=== PATIENT | male | born 2000 | race Caucasian/White ===

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

== ENCOUNTER 2019-01-08 07:15 | Emergency (ER) | payer OTHER ==
[~2019-01-08] VITALS: Ht 180.3 cm; Wt 81.8 kg
[2019-01-08] MEDS ORDERED: IBUP-1022 PO (07:24)
[2019-01-08 08:12] LABS: BASO % 0.5 % (0.0-1.0); EOS # 0.1 10^3/uL (0.0-0.5); EOS % 2.4 % (0.0-3.0); HEMATOCRIT 41.5 % (42.0-52.0); HEMOGLOBIN 13.9 g/dl (13.5-17.5); LYMPH # 1.2 10^3/uL (1.5-5.0); LYMPH % 32.6 % (24.0-44.0); MEAN CORPUSCULAR HEMOGLOBIN 30.8 pg (27.0-33.0); MEAN CORPUSCULAR HGB CONC 33.5 g/dl (32.0-36.5); MEAN CORPUSCULAR VOLUME 91.8 fl (80.0-96.0); MONO # 0.4 10^3/uL (0.0-0.8); MONO % 11.3 % (0.0-5.0); NEUTROPHILS % 52.9 % (36.0-66.0); PLATELET COUNT, AUTOMATED 235 10^3/uL (150-450); RED BLOOD COUNT 4.52 10^6/uL (4.30-6.10); WHITE BLOOD COUNT 3.8 10^3/uL (4.0-10.0)
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
[2019-01-08 08:35] LABS: BLOOD UREA NITROGEN 13 MG/DL (7-18); CALCIUM LEVEL 8.9 MG/DL (8.5-10.1); CARBON DIOXIDE LEVEL 26 MEQ/L (21-32); CHLORIDE LEVEL 110 MEQ/L (98-107); CREATININE FOR GFR 0.81 MG/DL (0.70-1.30); GLUCOSE, FASTING 93 MG/DL (70-100); POTASSIUM SERUM 3.8 MEQ/L (3.5-5.1); SODIUM LEVEL 143 MEQ/L (136-145)
--- NOTE | 2019-01-08 08:42 | REP ---
Lumbar spine series: Five views. History: Midline low back pain. Findings: Five views of the lumbar spine show straightening of the normal lumbar lordosis. Lumbar vertebral body heights are preserved. Alignment is normal. Disc spaces are maintained. There is no evidence of spondylolysis or spondylolisthesis. No fracture or collapse is seen. Sacrum and SI joints are intact. Impression: Straightening, otherwise normal radiographs of the lumbar spine. Electronically Signed by Bi Paiz MD 01/08/2019 08:34 A
--- NOTE | 2019-01-08 09:52 | REP ---
Left lower extremity Duplex Doppler venous ultrasound: Real time compression and duplex Doppler interrogation of the left lower extremity deep venous system is performed. The left common femoral, superficial femoral and popliteal veins are fully compressible with transducer pressure and demonstrate normal spontaneous and phasic flow, without evidence of deep venous thrombosis. Impression: No evidence of deep venous thrombosis of the left lower extremity femoral popliteal venous system. Electronically Signed by Derek Gamboa MD 01/08/2019 09:44 A
[2019-01-08] MEDS ORDERED: NS 1,000 ML IV ONE (11:15)
[2019-01-08 13:48] VITALS: BP 110/57
[2019-01-08 14:05] LABS: CK-MB VALUE MASS 3.4 NG/ML (<3.6); CPK CREATINE PHOSPHOKINASE 584 U/L (39-308); MB/CK RELATIVE INDEX 0.58 (< OR =4); TROPONIN I < 0.02 NG/ML (< 0.10)
--- NOTE | 2019-01-10 07:58 | ECGEPIP ---
[facility] - ED Test Date: 2019-01-08 Pat Name: LUIS F ESTRADA Department: Room: - Gender: Male Extension Associate: CT : 2000 Requested By: NERISSA Osorio PA-C Order Number: [id number] Reading MD: Luz Villafuerte Measurements Intervals [place] Rate: 58 P: 47 [place]: 147 QRS: 83 QRSD: 96 T: 53 QT: 429 QTc: 421 Interpretive Statements SINUS BRADYCARDIA EARLY REPOLARIZATION No prior Electronically Signed on 01-10-2019 7:58:09 EDT by Luz Villafuerte
== END 2019-01-08 13:56 | disposition home or self-care (01) ==
LOC: M ED 07:15
DX: S09.90XA Unspecified injury of head, initial encounter (principal); Y99.1 Military activity; Y92.84 Military training ground as the place of occurrence of the external cause; R42 Dizziness and giddiness; R51 Headache; F17.218 Nicotine dependence, cigarettes, with other nicotine-induced disorders; Y93.A5 Activity, obstacle course

== ENCOUNTER 2020-08-16 08:05 | Day surgery (SDC) | payer OTHER ==
[~2020-08-16] VITALS: Ht 177.8 cm; Wt 93.9 kg
[~2020-08-16 08:05] MED LIST: IBUP-1022 PO; MELA5CAP2 PO; NS 1,000 ML IV ONE
[2020-08-16] MEDS ORDERED: LIDOCAINE 2% MDV 20ML VIAL As Ordered ONE (09:57)
[2020-08-16] MEDS ORDERED: propofoL 200 MG/20 ML VIAL As Ordered ONE ×2 (09:57→10:08)
--- NOTE | 2020-08-16 10:20 | ROOR ---
Patient Name: Aneesh Cadena Procedure Date: 08/16/2020 10:02 AM Date of : 2000 Age: 20 [facility] Note Status: Finalized Procedure: Total Colonoscopy to Cecum + ileoscopy Indications: Lower abdominal pain, Rectal bleeding, Change in bowel habits Providers: Larry Mulligan MD Referring MD: LUZ HARDING MD Requesting Provider: Medicines: Monitored Anesthesia Care Complications: No immediate complications. Procedure: Pre-Anesthesia Assessment: - The heart rate, respiratory rate, oxygen saturations, blood pressure, adequacy of pulmonary ventilation, and response to care were monitored throughout the procedure. The Colonoscope was introduced through the anus and advanced to the terminal ileum, with identification of the appendiceal orifice and IC valve. The colonoscopy was performed without difficulty. The patient tolerated the procedure well. The quality of the bowel preparation was excellent. Findings: The perianal and digital rectal examinations were normal. Non-bleeding internal hemorrhoids were found during retroflexion. The hemorrhoids were small and Grade I (internal hemorrhoids that do not prolapse). No other significant abnormalities were identified in a careful examination of the remainder of the colon. The terminal ileum appeared normal. The exam was otherwise without abnormality on direct and retroflexion views. Impression: - Non-bleeding internal hemorrhoids. - The examined portion of the ileum was normal. - The examination was otherwise normal on direct and retroflexion views. - No specimens collected. - The exam was otherwise normal to the cecum. Recommendation: - Patient has a contact number available for emergencies. The signs and symptoms of potential delayed complications were discussed with the patient. Return to normal activities tomorrow. Written discharge instructions were provided to the patient. - High fiber diet. - Discharge patient to home. - Continue present medications. - Repeat colonoscopy at age 49 for screening purposes. - Return to referring physician. - The findings and recommendations were discussed with the patient's family. Procedure Code(s): --- Professional --- 91249, Colonoscopy, flexible; diagnostic, including collection of specimen(s) by brushing or washing, when performed (separate procedure) Diagnosis Code(s): --- Professional --- K64.0, First degree hemorrhoids R10.30, Lower abdominal pain, unspecified K62.5, Hemorrhage of anus and rectum R19.4, Change in bowel habit CPT copyright 2019 [employer]. All rights reserved. The codes documented in this report are preliminary and upon blanket washer review may be revised to meet current compliance requirements. Larry Mulligan MD Larry Mulligan MD 08/16/2020 10:19:43 AM Electronically signed by Larry Mulligan MD Number of Addenda: 0 Note Initiated On: 08/16/2020 10:02 AM Estimated Blood Loss: Estimated blood loss: none.
[2020-08-16 10:39] VITALS: BP 124/81
== END 2020-08-16 10:41 | disposition home or self-care (01) ==
LOC: M OPP 08:05
PROVIDERS: ATTEND Internal Medicine Gastroenterology
DX: K64.0 First degree hemorrhoids (principal); K62.5 Hemorrhage of anus and rectum; R10.30 Lower abdominal pain, unspecified; R19.4 Change in bowel habit; K21.9 Gastro-esophageal reflux disease without esophagitis; F17.218 Nicotine dependence, cigarettes, with other nicotine-induced disorders; Z79.899 Other long term (current) drug therapy

== ENCOUNTER 2021-01-09 10:49 | Emergency (ER) | payer OTHER ==
[~2021-01-09] VITALS: Ht 177.8 cm; Wt 95.3 kg
[~2021-01-09 10:49] MED LIST changes: -NS 1,000 ML IV ONE
[2021-01-09 13:00] LABS: BASO % 0.6 % (0.0-1.0); EOS # 0.1 10^3/uL (0.0-0.5); EOS % 2.5 % (0.0-3.0); HEMATOCRIT 46.1 % (42.0-52.0); HEMOGLOBIN 15.2 g/dl (13.5-17.5); LYMPH # 1.6 10^3/uL (1.5-5.0); LYMPH % 30.9 % (24.0-44.0); MEAN CORPUSCULAR HEMOGLOBIN 30.8 pg (27.0-33.0); MEAN CORPUSCULAR VOLUME 93.3 fl (80.0-96.0); MONO # 0.6 10^3/uL (0.0-0.8); MONO % 12.1 % (2.0-8.0); NEUTROPHILS # 2.7 10^3/uL (1.5-8.5); NEUTROPHILS % 53.3 % (36.0-66.0); PLATELET COUNT, AUTOMATED 259 10^3/uL (150-450); RED BLOOD COUNT 4.94 10^6/uL (4.30-6.10); WHITE BLOOD COUNT 5.1 10^3/uL (4.0-10.0)
[2021-01-09] MEDS ORDERED: ACETAMINOPHEN 500 MG TAB PO ONE (13:15)
--- NOTE | 2021-01-09 14:29 | REP ---
INDICATION: abd pain, rectal bleeding, h/o constion,chest pain x9 months COMPARISON: None. TECHNIQUE: Upright view of the chest with supine and upright views of the abdomen and pelvis. FINDINGS: Frontal upright view of the chest demonstrates no acute cardiopulmonary process or free air below the diaphragm to suspect pneumoperitoneum. Supine and upright views of the abdomen and pelvis demonstrate nonspecific bowel gas pattern without obstruction or perforation. No organomegaly. No abnormal calcifications. Skeletal structures normal for age. Surgical clips in the right lower quadrant. IMPRESSION: Nonspecific bowel gas pattern. <Electronically signed by Rob Drake > 01/09/21 [id number]
[2021-01-09 14:49] LABS: APPEARANCE, URINE CLEAR (CLEAR); BACTERIA, URINE AUTO NEGATIVE (NEGATIVE); BILIRUBIN, URINE AUTO NEGATIVE (NEGATIVE); BLOOD, URINE BLOOD NEGATIVE (NEGATIVE); COLOR, URINE YELLOW (YELLOW); GLUCOSE, URINE (UA) AUTO NEGATIVE (NEGATIVE); KETONE, URINE AUTO NEGATIVE (NEGATIVE); LEUKOCYTE ESTERASE, URINE AUTO NEGATIVE (NEGATIVE); NITRITE, URINE AUTO NEGATIVE (NEGATIVE); PROTEIN, URINE AUTO NEGATIVE (NEGATIVE); RBC, URINE AUTO 1 /HPF (0-3); SPECIFIC GRAVITY URINE AUTO 1.018 (1.002-1.035); SQUAMOUS EPITHELIAL CELL UR AU 0 /HPF (0-6); UROBILINOGEN, URINE AUTO 0.2 mg/dL (0.0-2.0); WBC, URINE AUTO 1 /HPF (0-3)
[2021-01-09 15:18] LABS: ALBUMIN 4.2 GM/DL (3.2-5.2); ALT/SGPT 63 U/L (12-78); BILIRUBIN,DIRECT < 0.1 MG/DL (0.0-0.2); BILIRUBIN,TOTAL 0.2 MG/DL (0.2-1.0); CK-MB VALUE MASS < 1.0 NG/ML (<3.6); CPK CREATINE PHOSPHOKINASE 239 U/L (39-308); FREE T4 0.95 NG/DL (0.76-1.46); LIPASE 46 U/L (73-393); MB/CK RELATIVE INDEX 0.42 (< OR =4); TOTAL PROTEIN 7.7 GM/DL (6.4-8.2); TROPONIN I < 0.02 NG/ML (< 0.10)
[2021-01-09] MEDS ORDERED: COLA100C5 PO (15:31)
[2021-01-09 15:45] VITALS: BP 130/69
--- NOTE | 2021-01-10 17:34 | ECGEPIP ---
[facility] - ED Test Date: 2021-01-09 Pat Name: LUIS F ESTRADA Department: Room: - Gender: Male Item Processor: JOHN : 2000 Requested By: NERISSA Osorio PA-C Order Number: [id number] Reading MD: Luz Villafuerte Measurements Intervals [place] Rate: 60 P: 28 [place]: 136 QRS: 68 QRSD: 94 T: 32 QT: 406 QTc: 406 Interpretive Statements Normal sinus rhythm with sinus arrhythmia similar 01/08/19 Electronically Signed on 01-10-2021 17:34:25 EDT by Luz Villafuerte
== END 2021-01-09 15:47 | disposition home or self-care (01) ==
LOC: M ED 10:49
DX: K62.5 Hemorrhage of anus and rectum (principal); K59.00 Constipation, unspecified; R10.9 Unspecified abdominal pain; R07.89 Other chest pain; R42 Dizziness and giddiness; K64.9 Unspecified hemorrhoids; K21.9 Gastro-esophageal reflux disease without esophagitis; G89.29 Other chronic pain; M54.50 Low back pain, unspecified; M25.569 Pain in unspecified knee; F17.200 Nicotine dependence, unspecified, uncomplicated

== ENCOUNTER 2021-02-05 08:32 | Emergency (ER) | payer OTHER ==
[~2021-02-05] VITALS: Ht 177.8 cm; Wt 99.8 kg
[~2021-02-05 08:32] MED LIST changes: +COLA100C5 PO
--- OUTSIDE RECORDS SUMMARY | 2021-02-05 08:39 | CCD | Continuity of Care Document ---
Author Author Aneesh CHAPIN [place] Organization Unknown Address [address] [place] [id number] Phone [phone] Care Team Providers Care Regional Sales Coordinator Name Role Phone Imtiaz Matos MD AUTM [facility] AUTM [phone] Problems Description No Information Available Social History Type Date Description Comments Sex Unknown Allergies and adverse reactions Description No Information Available Medications Description No Information Available Immunizations Description No Information Available Vital Signs Description No Information Available Results Description No Information Available Procedures Description No Information Available Medical Devices Description No Information Available Encounters Description No Information Available Assessments Description No Information Available Plan of Treatment No Information Available Functional Status Description No Information Available Mental Status Description No Information Available Referrals Description No Information Available
--- OUTSIDE RECORDS SUMMARY | 2021-02-05 08:39 | CCD | Continuity of Care Document ---
Author Author Aneesh CHAPIN Organization Unknown Address [address] [place] [id number] Phone [phone] Care Team Providers Care Agate Setter Name Role Phone Imtiaz Matos MD AUTM Unavailable [facility] AUTM Problems Description No Information Available Social History Type Date Description Comments Sex Unknown Allergies and adverse reactions Description No Information Available Medications Description No Information Available Immunizations Description No Information Available Vital Signs Description No Information Available Results Description No Information Available Procedures Description No Information Available Medical Devices Description No Information Available Encounters Description No Information Available Assessments Date Code Description Provider 02/04/2021 Z20.828 Contact with and (fierro spected) exposure to other viral communicable diseases JER Otero Plan of Treatment No Information Available Functional Status Description No Information Available Mental Status Description No Information Available Referrals Description No Information Available
--- OUTSIDE RECORDS SUMMARY | 2021-02-05 08:39 | CCD ---
Author Author [facility] Address Unknown Phone Unavailable Care Team Providers Care Leaf Tier Name Role Phone Cristo Mulligan MD Unavailable Unavailable Cristo Mulligan MD Unavailable Unavailable Cristo Mulligan MD Unavailable Unavailable Cristo Mulligan MD Unavailable Unavailable Cristo Mulligan MD Unavailable Unavailable Cristo Mulligan MD Unavailable Unavailable Cristo Mulligan MD Unavailable Unavailable Cristo Mulligan MD Unavailable Unavailable Cristo Mulligan MD Unavailable Unavailable Cristo Mulligan MD Unavailable Unavailable Cristo Mulligan MD Unavailable Unavailable Cristo Mulligan MD Unavailable Unavailable Cristo Mulligan MD Unavailable Unavailable Cristo Mulligan MD Unavailable Unavailable Cristo Mulligan MD Unavailable Unavailable Cristo Mulligan MD Unavailable Unavailable Cristo Mulligan MD Unavailable Unavailable Cristo Mulligan MD Unavailable Unavailable Cristo Mulligan MD Unavailable Unavailable Cristo Mulligan MD Unavailable Unavailable Cristo Mulligan MD Unavailable Unavailable Cristo Mulligan MD Unavailable Unavailable Cristo Mulligan MD Unavailable Unavailable Cristo Mulligan MD Unavailable Unavailable Cristo Mulligan MD Unavailable Unavailable Cristo Mulligan MD Unavailable Unavailable Cristo Mulligan MD Unavailable Unavailable Cristo Mulligan MD Unavailable Unavailable Cristo Mulligan MD Unavailable Unavailable Cristo Mulligan MD Unavailable Unavailable Cristo Mulligan MD Unavailable Unavailable Cristo Mulligan MD Unavailable Unavailable Cristo Mulligan MD Unavailable Unavailable Cristo Mulligan MD Unavailable Unavailable Ese, S Larry MD Unavailable Unavailable Ese, S Larry MD Unavailable Unavailable Ese, S Larry MD Unavailable Unavailable Ese, S Larry MD Unavailable Unavailable Ese, S Larry MD Unavailable Unavailable Ese, S Larry MD Unavailable Unavailable Ese, S Larry MD Unavailable Unavailable Ese, S Larry MD Unavailable Unavailable Ese, S Larry MD Unavailable Unavailable Ese, S Larry MD Unavailable Unavailable Ese, S Larry MD Unavailable Unavailable Ese, S Larry MD Unavailable Unavailable Ese, S Larry MD Unavailable Unavailable Ese, S Larry MD Unavailable Unavailable Ese, S Larry MD Unavailable Unavailable Ese, S Larry MD Unavailable Unavailable Re-disclosure Warning The records that you are about to access may contain information from federally-assisted alcohol or drug abuse programs. If such information is present, then the following federally mandated warning applies: This information has been disclosed to you from records protected by federal confidentiality rules (42 CFR part 2). The federal rules prohibit you from making any further disclosure of this information unless further disclosure is expressly permitted by the written consent of the person to whom it pertains or as otherwise permitted by 42 CFR part 2. A general authorization for the release of medical or other information is NOT sufficient for this purpose. The Federal rules restrict any use of the information to criminally investigate or prosecute any alcohol or drug abuse patient.The records that you are about to access may contain highly sensitive health information, the redisclosure of which is protected by Article 27-F of the [facility] Public Health law. If you continue you may have access to information: Regarding HIV / AIDS; Provided by facilities licensed or operated by the [facility] Office of Mental Health; or Provided by the [facility] Office for People With Developmental Disabilities. If such information is present, then the following [facility] mandated warning applies: This information has been disclosed to you from confidential records which are protected by state law. State law prohibits you from making any further disclosure of this information without the specific written consent of the person to whom it pertains, or as otherwise permitted by law. Any unauthorized further disclosure in violation of state law may result in a fine or shelter sentence or both. A general authorization for the release of medical or other information is NOT sufficient authorization for further disc losure. Encounters Encounter Providers Location Date Indications Data Source(s ) Outpatient Attender: Larry Mulligan MD Main Office 07/27/2020 09:45:00 AM EDT [facility] ([facility]) Immunizations Vaccine Date Status Description Data Source(s) COVID-19 VACCINE Pfizer 08/30/2020 12:00:00 AM EDT completed [facility] Vaccine Series Complete: NOThis Data was Submitted to [facility] Via [employer]. Medications Medication Brand Name Start Date Product Form Dose Route Admi nistrative Instructions Pharmacy Instructions Status Indications Reaction Description Data Source(s) Suprep Bowel Prep Kit Suprep Bowel Prep Kit 07/27/2020 12:00:00 AM EDT active [facility]) No Active Medications 07/27/2020 12:00:00 AM EDT completed [facility] ([facility]) Insurance Providers Payer name Policy type / Coverage type Policy ID Covered democrat ID Covered democrat's relationship to landaverde Policy Landaverde Plan Information [facility] [employer] [employer] [id number] Problems, Conditions, and Diagnoses Code Display Name Description Problem Type Effective Dates Data Source(s) [id number] Hemorrhage of rectum and anus Hemorrhage of rectum and anus Problem 07/27/2020 12:00:00 AM EDT [facility] ([facility]) Surgeries/Procedures No Information Results No Information Social History No Information Vital Signs ID Date Data Source UNK Name Value Range Interpretation Code Description Data Source(s) Body height 69 [in_i] 69 [in_i] [facility] 5'9" Body weight 218.00 [lb_av] 218.00 [lb_av] [facility] ([facility]) Systolic blood pressure 130 mm[Hg] 130 mm[Hg] M [facility]) Diastolic blood pressure 57 mm[Hg] 57 mm[Hg] [facility]) Heart rate 86 /min 86 /min [facility] Body mass index (BMI) [Ratio] 32.2 kg/m2 32.2 k g/m2 [facility]) Body weight 98.885 kg 98.885 kg [facility] Body temperature 98.1 [degF] 98.1 [degF] [facility])
[2021-02-05] MEDS ORDERED: NS 1,000 ML IV ONE ×2 (12:35→14:55)
[2021-02-05] MEDS ORDERED: BENZONATATE 100MG CAPSULE PO ONE (12:35)
[2021-02-05] MEDS ORDERED: KETOROLAC 30 MG/ML 1ML VIAL IV ONE (12:35)
[2021-02-05] MEDS ORDERED: ONDANSETRON 4MG/2ML VIAL IV ONE (12:35)
--- NOTE | 2021-02-05 12:50 | REP ---
INDICATION: cough, SOB, CP. COMPARISON: 01/09/2021 TECHNIQUE: Portable FINDINGS: The technique utilized in obtaining the radiograph has magnified the cardiac silhouette and accentuated the interstitial markings. The superior mediastinal structures are midline. The cardiac silhouette is unremarkable in size, shape, and position. The diaphragmatic surfaces of the lungs are regular, and the costophrenic angles are clear. The pulmonary cruz are clear. The imaged osseous structures are intact. IMPRESSION: There is no acute cardiopulmonary disease. <Electronically signed by Michael Caballero > 02/05/21 [id number]
[2021-02-05 13:22] LABS: VENOUS BASE EXCESS 3.2 (-2.0-2.0); VENOUS HCO3 31.2 MEQ/L (23.0-27.0); VENOUS O2 SATURATION 49.7 % (60.0-80.0); VENOUS PARTIAL PRESSURE O2 25.9 mmHg (30.0-50.0); VENOUS PH 7.326 UNITS (7.330-7.430); VENOUS STANDARD HCO3 25.9 MEQ/L
[2021-02-05 13:28] LABS: BASO # 0.1 10^3/uL (0.0-0.2); BASO % 0.7 % (0.0-1.0); EOS # 0.2 10^3/uL (0.0-0.5); EOS % 2.4 % (0.0-3.0); HEMATOCRIT 46.4 % (42.0-52.0); HEMOGLOBIN 15.3 g/dl (13.5-17.5); LYMPH # 1.6 10^3/uL (1.5-5.0); LYMPH % 22.9 % (24.0-44.0); MEAN CORPUSCULAR HEMOGLOBIN 30.4 pg (27.0-33.0); MEAN CORPUSCULAR VOLUME 92.2 fl (80.0-96.0); MONO # 0.7 10^3/uL (0.0-0.8); NEUTROPHILS # 4.5 10^3/uL (1.5-8.5); NEUTROPHILS % 63.2 % (36.0-66.0); PLATELET COUNT, AUTOMATED 276 10^3/uL (150-450); RED BLOOD COUNT 5.03 10^6/uL (4.30-6.10); WHITE BLOOD COUNT 7.1 10^3/uL (4.0-10.0)
[2021-02-05 13:52] LABS: RSV AMPLIFICATION NEGATIVE (NEGATIVE)
[2021-02-05 14:12] LABS: ALBUMIN 4.7 GM/DL (3.2-5.2); ALT/SGPT 75 U/L (12-78); BILIRUBIN,DIRECT 0.1 MG/DL (0.0-0.2); BILIRUBIN,TOTAL 0.4 MG/DL (0.2-1.0); CK-MB VALUE MASS 3.3 NG/ML (<3.6); CPK CREATINE PHOSPHOKINASE 598 U/L (39-308); LIPASE 46 U/L (73-393); MB/CK RELATIVE INDEX 0.55 (< OR =4); TOTAL PROTEIN 8.5 GM/DL (6.4-8.2); TROPONIN I < 0.02 NG/ML (< 0.10)
[2021-02-05] MEDS ORDERED: TESS100C PO (14:57)
[2021-02-05] MEDS ORDERED: ONDA4TAB6 PO (14:57)
[2021-02-05] MEDS ORDERED: PROAAER10 INH (14:57)
[2021-02-05] MEDS: ALBUTEROL 90 MCG/ACT 8GM HFA INHALER INH SCH ×2 (15:27→15:55)
[2021-02-05 16:20] LABS: BLOOD UREA NITROGEN 16 MG/DL (7-18); CALCIUM LEVEL 10.2 MG/DL (8.5-10.1); CARBON DIOXIDE LEVEL 29 MEQ/L (21-32); CHLORIDE LEVEL 102 MEQ/L (98-107); CREATININE FOR GFR 0.92 MG/DL (0.70-1.30); GLOMERULAR FILTRATION RATE > 60.0 (>60); GLUCOSE, FASTING 75 MG/DL (70-100); POTASSIUM SERUM 3.9 MEQ/L (3.5-5.1); SODIUM LEVEL 137 MEQ/L (136-145)
[2021-02-05] MEDS ORDERED: ISOVUE-370 76% 100ML VIAL As Ordered ONE (17:20)
--- NOTE | 2021-02-05 18:27 | REPVR ---
PROCEDURE INFORMATION: Exam: CTA Chest With Contrast Exam date and time: 02/05/2021 5:13 PM Age: 21 years old Clinical indication: Shortness of breath; Additional info: SOB TECHNIQUE: Imaging protocol: Computed tomographic angiography of the chest with contrast. 3D rendering (Not supervised by radiologist): MIP and/or 3D reconstructed images were created by the technologist. Radiation optimization: All CT scans at this facility use at least one of these dose optimization techniques: automated exposure control; mA and/or kV adjustment per patient size (includes targeted exams where dose is matched to clinical indication); or iterative reconstruction. Contrast material: ISOVUE 370; Contrast volume: 100 ml; Contrast route: INTRAVENOUS (IV); COMPARISON: CR PORTABLE CHEST X-RAY 02/05/2021 12:38 PM FINDINGS: Pulmonary arteries: No filling defect is seen in the pulmonary arteries bilaterally to indicate pulmonary emboli. Pulsation artifact affects the pulmonary arterial trunk. Aorta: No thoracic aortic aneurysm. Prominent pulsation artifact affects the aortic root and ascending thoracic aorta and limits evaluation of these portions of the aorta. Thyroid: Included thyroid is unremarkable. Lungs: Unremarkable. No consolidation. No masses. Pleural spaces: Unremarkable. No pneumothorax. No pleural effusion. Heart: Unremarkable. No cardiomegaly. No pericardial effusion. Mediastinal space: Small amount of air in the distal esophagus which may reflect reflux or poor clearance. Residual thymic tissue is present in the anterior mediastinum. Lymph nodes: Unremarkable. No enlarged lymph nodes. Additional findings: For findings in the upper abdomen, please refer to report for CT abdomen and pelvis, also performed today and dictated separately. Bones/joints: No acute osseous abnormality. Soft tissues: Unremarkable. IMPRESSION: 1. No evidence of pulmonary embolism. 2. Prominent pulsation artifact affects the aortic root and ascending thoracic aorta and limits evaluation of these portions of the aorta. 3. For findings in the upper abdomen, please refer to report for CT abdomen and pelvis, also performed today and dictated separately. Electronically signed by: Keli Rose On 02/05/2021 18:27:20 PM
--- NOTE | 2021-02-05 18:53 | REPVR ---
PROCEDURE INFORMATION: Exam: CT Abdomen And Pelvis With Contrast Exam date and time: 02/05/2021 5:13 PM Age: 21 years old Clinical indication: Abdominal pain; Additional info: Rlq pain TECHNIQUE: Imaging protocol: Computed tomography of the abdomen and pelvis with contrast. Radiation optimization: All CT scans at this facility use at least one of these dose optimization techniques: automated exposure control; mA and/or kV adjustment per patient size (includes targeted exams where dose is matched to clinical indication); or iterative reconstruction. Contrast material: ISOVUE 370; Contrast volume: 100 ml; Contrast route: INTRAVENOUS (IV); COMPARISON: CR Abdomen,Flat Upright,PA CHEST 01/09/2021 2:06 PM FINDINGS: Liver: The liver is enlarged. There is severe diffuse fatty liver change with minimal focal sparing at the gallbladder bed and right inferior liver. Gallbladder and bile ducts: Unremarkable. No biliary ductal dilatation. Pancreas: Normal. No ductal dilation. Spleen: Normal. No splenomegaly. Adrenal glands: Normal. No mass. Kidneys and ureters: Normal. No hydronephrosis. Stomach and bowel: There is no bowel dilatation to indicate obstruction. No pneumatosis. Mild wall thickening appears to be present in the distal sigmoid colon and rectum, with minimal adjacent fat stranding. Appendix: Appendix is not seen. Multiple surgical clips in the right lower quadrant and posterior aspect of the cecum presumably from prior appendectomy. Intraperitoneal space: No free air or free fluid. Vasculature: Unremarkable. No abdominal aortic aneurysm. Lymph nodes: Multiple small central and left mesenteric lymph nodes. Small bilateral inguinal lymph nodes. Urinary bladder: Unremarkable as visualized. Reproductive: Unremarkable as visualized. Bones/joints: No acute osseous abnormality. Soft tissues: Unremarkable. Other findings: For findings in the lower chest, please refer to report for CT chest, also performed today and dictated separately. IMPRESSION: 1. Findings suggesting a mild distal colitis and proctitis. 2. Hepatomegaly with severe diffuse fatty liver change. 3. Multiple small central and left mesenteric lymph nodes, most likely reactive. 4. Prior appendectomy. Electronically signed by: Keli Rose On 02/05/2021 18:53:00 PM
[2021-02-05] MEDS ORDERED: FLAG375C PO (19:01)
[2021-02-05] MEDS ORDERED: CIPR-249 PO (19:01)
[2021-02-05 19:31] VITALS: BP 128/64
--- NOTE | 2021-02-06 17:13 | ED PDOC ---
Post-Departure Follow-Up radiology report faxed to [facility] Luz Villafuerte MD Feb 06, 2021 17:13
== END 2021-02-05 19:36 | disposition home or self-care (01) ==
LOC: M ED 08:32
DX: K52.9 Noninfective gastroenteritis and colitis, unspecified (principal); R10.31 Right lower quadrant pain; K76.0 Fatty (change of) liver, not elsewhere classified; R06.00 Dyspnea, unspecified; R05.9 Cough, unspecified; R16.0 Hepatomegaly, not elsewhere classified; I88.0 Nonspecific mesenteric lymphadenitis; Z90.89 Acquired absence of other organs; F17.200 Nicotine dependence, unspecified, uncomplicated; Z79.899 Other long term (current) drug therapy
CPT/HCPCS: 71045; 71275; 74177; 80048; 80076; 81001; 82550; 82553; 82803; 83690; 84484; 85025; 85379; 87631; 87880; 94640; 96361; 96374; 96375; 99284; J1885; J2405; Q9967